=== PATIENT | female | born 1975 | race Caucasian/White ===

== ENCOUNTER → 2016-05-20 | Outpatient (CLI) | payer OTHER ==
[~2016-05-20] MED LIST: AUGM875T27 PO; NEUR600T PO; TRAM50TA2 PO; TYLE325T5 PO
--- NOTE | 2016-05-20 10:02 | REP ---
Clinical: Pain. Bursitis. Technique: AP, lateral, bilateral oblique views of the left elbow. Findings: No acute or healed fracture identified. Small calcifications adjacent to the olecranon process suggest degenerative changes and possible mild tendinopathy. No significant swelling or obvious effusion/bursitis appreciated by radiographic evaluation. Impression: Mild degenerative changes. No obvious effusion or bursitis noted. Signed by Michael Chino MD 05/20/2016 09:53 A
[2016-05-20 13:38] LABS: BASO % 0.7 % (0.0-1.0); EOS # 0.1 K/mm3 (0.0-0.50); EOS % 0.9 % (0.0-3.0); LARGE UNSTAINED CELL # 0.2 K/mm3 (0.0-0.4); LARGE UNSTAINED CELL % 1.8 % (0.0-4.0); LYMPH # 1.4 K/mm3 (1.5-4.5); LYMPH % 17.5 % (24.0-44.0); MEAN CORPUSCULAR HEMOGLOBIN 31.4 pg (27.0-33.0); MEAN CORPUSCULAR VOLUME 89.9 fl (80.0-96.0); MONO # 0.5 K/mm3 (0.0-0.8); MONO % 6.7 % (0.0-5.0); NEUTROPHILS # 5.7 K/mm3 (1.8-7.7); NEUTROPHILS % 72.3 % (36.0-66.0); PLATELET COUNT, AUTOMATED 323 k/mm3 (150-450); RED CELL DISTRIBUTION WIDTH 11.5 % (11.5-14.5); WHITE BLOOD COUNT 7.9 K/mm3 (4.0-10.0)
[2016-05-20 14:17] LABS: ERYTHROCYTE SEDIMENTATION RATE 20 mm/hr (0-20)
[2016-05-21 14:13] LABS: Lyme Disease IgG/IgM Antibodie <0.91 ISR (0.00-0.90); Lyme Disease IgM Ab Quantitati <0.80 index (0.00-0.79)
== END ==
LOC: M SMT 09:22
PROVIDERS: ATTEND Physician Assistant
DX: M70.22 Olecranon bursitis, left elbow (principal)

== ENCOUNTER → 2016-12-04 | Outpatient (CLI) | payer OTHER ==
[~2016-12-04] MED LIST changes: -AUGM875T27 PO; +AUGM875T28 PO
[2016-12-04 18:03] LABS: MEAN CORPUSCULAR VOLUME 91.1 fl (80.0-96.0); RED CELL DISTRIBUTION WIDTH 12.7 % (11.5-14.5); WHITE BLOOD COUNT 6.3 K/mm3 (4.0-10.0)
[2016-12-04 18:45] LABS: ALBUMIN 3.8 GM/DL (3.2-5.2); ALBUMIN/GLOBULIN RATIO 1.15 (1.00-1.93); ALKALINE PHOSPHATASE 132 U/L (45-117); ALT/SGPT 40 U/L (12-78); ANION GAP 9 MEQ/L (8-16); AST/SGOT 23 U/L (15-37); BILIRUBIN,TOTAL 0.4 MG/DL (0.2-1.0); BLOOD UREA NITROGEN 10 MG/DL (7-18); CALCIUM LEVEL 8.7 MG/DL (8.5-10.1); CARBON DIOXIDE LEVEL 27 MEQ/L (21-32); CHLORIDE LEVEL 103 MEQ/L (98-107); CREATININE FOR GFR 0.64 MG/DL (0.55-1.02); FREE T4 0.94 NG/DL (0.76-1.46); GLOMERULAR FILTRATION RATE > 60.0 (>58); GLUCOSE, FASTING 73 MG/DL (70-105); POTASSIUM SERUM 3.9 MEQ/L (3.5-5.1); SODIUM LEVEL 139 MEQ/L (136-145); TOTAL PROTEIN 7.1 GM/DL (6.4-8.2)
[2016-12-04 21:30] LABS: BANDS 1 % (< 11); BASOPHILS 1 % (0-4)
== END ==
LOC: M WUC 08:55
PROVIDERS: ATTEND Physician Assistant
DX: J02.9 Acute pharyngitis, unspecified (principal); R53.83 Other fatigue

== ENCOUNTER → 2017-02-15 | Outpatient (CLI) | payer OTHER ==
[2017-02-15 13:40] LABS: BASO % 0.8 % (0.0-1.0); EOS # 0.2 10^3/uL (0.0-0.50); EOS % 3.2 % (0.0-3.0); IMMATURE GRANULOCYTE % 0.2 % (0-0); LYMPH # 1.1 10^3/uL (1.5-4.5); LYMPH % 21.6 % (24.0-44.0); MEAN CORPUSCULAR HEMOGLOBIN 30.5 pg (27.0-33.0); MEAN CORPUSCULAR HGB CONC 33.5 g/dl (32.0-36.5); MONO # 0.5 10^3/uL (0.0-0.8); MONO % 10.5 % (0.0-5.0); NEUTROPHILS # 3.2 10^3/uL (1.8-7.7); NEUTROPHILS % 63.7 % (36.0-66.0); PLATELET COUNT, AUTOMATED 242 10^3/uL (150-450); RED CELL DISTRIBUTION WIDTH 12.1 % (11.5-14.5)
[2017-02-15 13:49] LABS: ALBUMIN 3.9 GM/DL (3.2-5.2); ALBUMIN/GLOBULIN RATIO 1.11 (1.00-1.93); ALKALINE PHOSPHATASE 101 U/L (45-117); ALT/SGPT 78 U/L (12-78); ANION GAP 5 MEQ/L (8-16); AST/SGOT 35 U/L (15-37); BILIRUBIN,TOTAL 0.6 MG/DL (0.2-1.0); BLOOD UREA NITROGEN 12 MG/DL (7-18); CALCIUM LEVEL 8.6 MG/DL (8.5-10.1); CARBON DIOXIDE LEVEL 28 MEQ/L (21-32); CHLORIDE LEVEL 106 MEQ/L (98-107); GLOMERULAR FILTRATION RATE > 60.0 (>58); GLUCOSE, FASTING 72 MG/DL (70-105); POTASSIUM SERUM 4.1 MEQ/L (3.5-5.1); SODIUM LEVEL 139 MEQ/L (136-145); TOTAL PROTEIN 7.4 GM/DL (6.4-8.2)
== END ==
LOC: M SMT 09:09
PROVIDERS: ATTEND Family Medicine
DX: B27.99 Infectious mononucleosis, unspecified with other complication (principal)

== ENCOUNTER → 2017-02-23 | Outpatient (CLI) | payer OTHER ==
--- NOTE | 2017-02-23 15:58 | REPMRS ---
Patient History The patient states she had a clinical breast exam in Patient is nulliparous. Family history of prostate cancer in father at age 65. Digital Woman Screen Mammo: February 23, 2017 - Exam #: [id number] Bilateral CC and MLO view(s) were taken. Technologist: Esthela Styles, Technologist Prior study comparison: November 25, 2015, digital woman screen mammo performed at [facility]. FINDINGS: There are scattered fibroglandular densities. There has been no change in the appearance of the mammogram from the prior studies. There is a mild amount of residual fibroglandular tissue which is fairly symmetric. There is no interval development of dominant mass, architectural distortion, or clustered microcalcification suggestive of malignancy. ASSESSMENT: BI-RADS/ACR category 1 mammogram. Negative. Recommendation Routine screening mammogram in 1 year (for women over age 40). This mammogram was interpreted with the aid of an FDA-approved computer-aided dectection system. Electronically Signed By: Donnie Mendes MD 02/23/17 [id number]
== END ==
LOC: M WHC 15:25
PROVIDERS: ATTEND Nurse Practitioner Women's Health
DX: Z12.31 Encounter for screening mammogram for malignant neoplasm of breast (principal)

== ENCOUNTER → 2017-07-26 | Outpatient (REF) | payer OTHER | LOC: M LAB REF 16:24 | DX: J02.9 Acute pharyngitis, unspecified (principal) ==

== ENCOUNTER → 2019-04-22 | Outpatient (CLI) | payer OTHER ==
[2019-04-22 13:31] LABS: BASO # 0.1 10^3/uL (0.0-0.2); BASO % 0.9 % (0.0-1.0); EOS # 0.1 10^3/uL (0.0-0.5); EOS % 1.4 % (0.0-3.0); HEMATOCRIT 43.3 % (36.0-47.0); HEMOGLOBIN 14.5 g/dl (12.0-15.5); LYMPH # 1.3 10^3/uL (1.5-5.0); LYMPH % 22.9 % (24.0-44.0); MEAN CORPUSCULAR HEMOGLOBIN 30.5 pg (27.0-33.0); MEAN CORPUSCULAR HGB CONC 33.5 g/dl (32.0-36.5); MEAN CORPUSCULAR VOLUME 91.2 fl (80.0-96.0); MONO # 0.5 10^3/uL (0.0-0.8); NEUTROPHILS # 3.8 10^3/uL (1.5-8.5); NEUTROPHILS % 66.6 % (36.0-66.0); PLATELET COUNT, AUTOMATED 227 10^3/uL (150-450); RED BLOOD COUNT 4.75 10^6/uL (4.00-5.40); WHITE BLOOD COUNT 5.7 10^3/uL (4.0-10.0)
[2019-04-22 14:04] LABS: ALBUMIN 3.9 GM/DL (3.2-5.2); ALT/SGPT 68 U/L (12-78); BILIRUBIN,TOTAL 0.4 MG/DL (0.2-1.0); BLOOD UREA NITROGEN 10 MG/DL (7-18); CALCIUM LEVEL 8.8 MG/DL (8.5-10.1); CARBON DIOXIDE LEVEL 27 MEQ/L (21-32); CHLORIDE LEVEL 108 MEQ/L (98-107); CHOLESTEROL LEVEL 222 MG/DL (<200); CHOLESTEROL RISK RATIO 2.551 (<5); CREATININE FOR GFR 0.65 MG/DL (0.55-1.30); FREE T4 1.05 NG/DL (0.76-1.46); GLOMERULAR FILTRATION RATE > 60.0 (>58); GLUCOSE, FASTING 81 MG/DL (70-100); HDL CHOLESTEROL 87 MG/DL (>40); LDL CHOLESTEROL 122 MG/DL (<100); NON-HDL-C 135 MG/DL; POTASSIUM SERUM 3.9 MEQ/L (3.5-5.1); SODIUM LEVEL 142 MEQ/L (136-145); TOTAL PROTEIN 7.2 GM/DL (6.4-8.2); TRIGLYCERIDES LEVEL 64 MG/DL (<150)
== END ==
LOC: M PLALAB 09:08
PROVIDERS: ATTEND Family Medicine
DX: Z13.29 Encounter for screening for other suspected endocrine disorder (principal); Z13.220 Encounter for screening for lipoid disorders

== ENCOUNTER → 2019-05-20 | Outpatient (CLI) | payer OTHER ==
--- NOTE | 2019-05-20 12:52 | REPMRS ---
Patient History The patient states she had a clinical breast exam in 2018. Family history of prostate cancer at age 65 in father. Digital Woman Screen Mammo: May 20, 2019 - Exam #: [id number] Bilateral CC and MLO view(s) were taken. Technologist: Esther Campbell, Technologist Prior study comparison: February 23, 2017, digital woman screen mammo performed at [facility]. November 25, 2015, digital woman screen mammo performed at [facility]. FINDINGS: There are scattered fibroglandular densities. There has been no change in the appearance of the mammogram from the prior studies. There is a mild amount of scattered fibroglandular density which is fairly symmetric. There is no interval development of dominant mass, architectural distortion, or grouped microcalcification suggestive of malignancy. 3-D tomosynthesis shows no additional findings. Assessment: BI-RADS/ACR category 1 mammogram. Negative Mammogram. Recommendation Routine screening mammogram of both breasts in 1 year (for women over age 40). This patient's Lifetime Breast Cancer Risk is estimated at 14.0 %. This mammogram was interpreted with the aid of an FDA-approved computer-aided dectection system. Electronically Signed By: Hugo Cooper MD 05/20/19 [id number]
== END ==
LOC: M WHC 10:33
PROVIDERS: ATTEND Family Medicine
DX: Z12.31 Encounter for screening mammogram for malignant neoplasm of breast (principal)

== ENCOUNTER → 2020-04-23 | Outpatient (CLI) | payer OTHER ==
[2020-04-23 11:34] LABS: BASO % 0.8 % (0.0-1.0); EOS # 0.1 10^3/uL (0.0-0.5); EOS % 1.8 % (0.0-3.0); HEMATOCRIT 43.7 % (36.0-47.0); HEMOGLOBIN 14.4 g/dl (12.0-15.5); LYMPH # 1.2 10^3/uL (1.5-5.0); LYMPH % 24.6 % (24.0-44.0); MEAN CORPUSCULAR HEMOGLOBIN 30.2 pg (27.0-33.0); MEAN CORPUSCULAR VOLUME 91.6 fl (80.0-96.0); MONO # 0.7 10^3/uL (0.0-0.8); MONO % 13.3 % (0.0-5.0); NEUTROPHILS # 2.9 10^3/uL (1.5-8.5); NEUTROPHILS % 59.3 % (36.0-66.0); PLATELET COUNT, AUTOMATED 261 10^3/uL (150-450); RED BLOOD COUNT 4.77 10^6/uL (4.00-5.40); WHITE BLOOD COUNT 4.9 10^3/uL (4.0-10.0)
[2020-04-23 14:07] LABS: ALBUMIN 3.8 GM/DL (3.2-5.2); ALT/SGPT 50 U/L (12-78); BILIRUBIN,TOTAL 0.4 MG/DL (0.2-1.0); BLOOD UREA NITROGEN 12 MG/DL (7-18); CALCIUM LEVEL 8.8 MG/DL (8.5-10.1); CARBON DIOXIDE LEVEL 28 MEQ/L (21-32); CHLORIDE LEVEL 106 MEQ/L (98-107); CHOLESTEROL LEVEL 184 MG/DL (<200); CREATININE FOR GFR 0.61 MG/DL (0.55-1.30); FREE T4 1.59 NG/DL (0.76-1.46); GLOMERULAR FILTRATION RATE > 60.0 (>58); GLUCOSE, FASTING 78 MG/DL (70-100); HDL CHOLESTEROL 65 MG/DL (>40); LDL CHOLESTEROL 107 MG/DL (<100); NON-HDL-C 119 MG/DL; POTASSIUM SERUM 4.4 MEQ/L (3.5-5.1); SODIUM LEVEL 141 MEQ/L (136-145); THYROID STIMULATING HORMONE 0.015 uIU/ML (0.358-3.740); TOTAL PROTEIN 6.9 GM/DL (6.4-8.2); TRIGLYCERIDES LEVEL 61 MG/DL (<150)
[2020-04-23 19:33] LABS: THYROID PEROXIDASE ANTIBODY 39.2 U/ML (<60.0)
[2020-04-23 19:34] LABS: THYROGLOBULIN ANTIBODY 49.4 U/ML (<60.0)
== END ==
LOC: M WUC 08:05
PROVIDERS: ATTEND Family Medicine
DX: Z13.29 Encounter for screening for other suspected endocrine disorder (principal); Z13.0 Encounter for screening for diseases of the blood and blood-forming organs and certain disorders involving the immune mechanism; Z13.220 Encounter for screening for lipoid disorders

== ENCOUNTER → 2020-05-20 | Outpatient (CLI) | payer OTHER ==
[2020-05-20 12:19] LABS: THYROGLOBULIN ANTIBODY 56.8 U/ML (<60.0); THYROID PEROXIDASE ANTIBODY < 28.0 U/ML (<60.0)
== END ==
LOC: M WUC 09:03
PROVIDERS: ATTEND Family Medicine
DX: E05.90 Thyrotoxicosis, unspecified without thyrotoxic crisis or storm (principal)

== ENCOUNTER → 2020-07-10 | Outpatient (CLI) | payer OTHER ==
--- NOTE | 2020-07-10 14:20 | REPVR ---
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 3D rendering (Not supervised by radiologist): MIP and/or 3D reconstructed images were created by the technologist. COMPARISON: MR BRAIN WITH CONTRAST [id number] 05/06/2020 11:12 PM FINDINGS: Brain: Stable appearance of well-defined rounded CSF signal intensity cyst along the left lateral aspect of the 3rd ventricle measuring approximately 1.5 x 1.3 x 1.1 cm in dimensions. There is mass effect with compression and mild displacement of the 3rd ventricle towards the right. 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 Remainder of the brain parenchyma is unremarkable. No acute infarction or acute hemorrhage is seen.There is no abnormal diffusion weighted signal intensity to suggest an acute ischemic event. Examination of the posterior fossa demonstrates no significant abnormality. Cerebral ventricles: There is a new right frontal [employer] shunt with its tip adjacent to the body of the right lateral ventricle , best appreciated on coronal series 1005 image 53. It is not clear if the tip extends into the lateral ventricle and CT scan of the brain may be considered to evaluate the location of the tip of the [employer] shunt. The degree of hydrocephalus is overall unchanged since the previous study. Bones/joints: Unremarkable. Paranasal sinuses: Normal as visualized. No acute sinusitis. Mastoid air cells: Normal as visualized. No mastoid effusion. Orbital cavity: Unremarkable. Soft tissues: Unremarkable. IMPRESSION: 1. Stable appearance of well-defined rounded CSF signal intensity cyst along the left lateral aspect of the 3rd ventricle measuring approximately 1.5 x 1.3 x 1.1 cm in dimensions. There is mass effect with compression and mild displacement of the 3rd ventricle towards the right. 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 2. There is a new right frontal [employer] shunt with its tip adjacent to the body of the right lateral ventricle , best appreciated on coronal series 1005 image 53. It is not clear if the tip extends into the lateral ventricle and CT scan of the brain may be considered to evaluate the location of the tip of the [employer] shunt. The degree of hydrocephalus is overall unchanged since the previous study. Electronically signed by: Mac Pratt On 07/10/2020 14:20:57 PM
== END ==
LOC: M RAD 09:25
DX: G91.9 Hydrocephalus, unspecified (principal)

== ENCOUNTER → 2020-08-19 | Outpatient (CLI) | payer OTHER ==
--- NOTE | 2020-08-19 15:56 | REPMRS ---
Patient History The patient states she had a clinical breast exam in June 2020. Family history of prostate cancer at age 65 in father. Digital Woman Screen Mammo: August 19, 2020 - Exam #: [id number] Bilateral CC and MLO view(s) were taken. Technologist: RT Luís Prior study comparison: May 20, 2019, bilateral digital woman screen mammo performed at [facility]. February 23, 2017, digital woman screen mammo performed at [facility]. November 25, 2015, digital woman screen mammo performed at [facility]. FINDINGS: There are scattered fibroglandular densities. The Volpara volumetric breast density category is: B. There is a moderate amount of residual fibroglandular tissue which is fairly symmetric. There is no interval development of dominant mass, architectural distortion, or grouped microcalcification typical of malignancy. There has been no change in the appearance of the mammogram from the prior studies. 3-D tomosynthesis shows no additional findings. Assessment: BI-RADS/ACR category 1 mammogram. Negative Mammogram. Recommendation Routine screening mammogram of both breasts in 1 year (for women over age 40). This patient's [facility] Lifetime Breast Cancer RIsk is estimated at 13.8 %. This mammogram was interpreted with the aid of an FDA-approved computer-aided dectection system. Electronically Signed By: Hugo Cooper MD 08/19/20 [id number]
== END ==
LOC: M WHC 14:52
PROVIDERS: ATTEND Advanced Practice Midwife
DX: Z12.31 Encounter for screening mammogram for malignant neoplasm of breast (principal); Z80.42 Family history of malignant neoplasm of prostate

== ENCOUNTER → 2021-04-29 | Outpatient (CLI) | payer OTHER ==
[2021-04-29 10:20] LABS: BASO % 0.9 % (0.0-1.0); EOS # 0.1 10^3/uL (0.0-0.5); HEMATOCRIT 45.4 % (36.0-47.0); HEMOGLOBIN 15.3 g/dl (12.0-15.5); LYMPH # 1.5 10^3/uL (1.5-5.0); LYMPH % 33.2 % (24.0-44.0); MEAN CORPUSCULAR HEMOGLOBIN 30.1 pg (27.0-33.0); MEAN CORPUSCULAR HGB CONC 33.7 g/dl (32.0-36.5); MEAN CORPUSCULAR VOLUME 89.2 fl (80.0-96.0); MONO # 0.5 10^3/uL (0.0-0.8); MONO % 11.4 % (2.0-8.0); NEUTROPHILS # 2.4 10^3/uL (1.5-8.5); NEUTROPHILS % 52.3 % (36.0-66.0); PLATELET COUNT, AUTOMATED 244 10^3/uL (150-450); RED BLOOD COUNT 5.09 10^6/uL (4.00-5.40); WHITE BLOOD COUNT 4.6 10^3/uL (4.0-10.0)
[2021-04-29 10:57] LABS: ALBUMIN 3.9 GM/DL (3.2-5.2); ALT/SGPT 61 U/L (12-78); BILIRUBIN,TOTAL 0.7 MG/DL (0.2-1.0); BLOOD UREA NITROGEN 14 MG/DL (7-18); CALCIUM LEVEL 9.2 MG/DL (8.5-10.1); CARBON DIOXIDE LEVEL 29 MEQ/L (21-32); CHLORIDE LEVEL 107 MEQ/L (98-107); CHOLESTEROL LEVEL 201 MG/DL (<200); CHOLESTEROL RISK RATIO 2.421 (<5); CREATININE FOR GFR 0.63 MG/DL (0.55-1.30); FREE T4 1.23 NG/DL (0.76-1.46); GLOMERULAR FILTRATION RATE > 60.0 (>58); GLUCOSE, FASTING 84 MG/DL (70-100); HDL CHOLESTEROL 83 MG/DL (>40); LDL CHOLESTEROL 108 MG/DL (<100); NON-HDL-C 118 MG/DL; SODIUM LEVEL 140 MEQ/L (136-145); THYROID STIMULATING HORMONE < 0.005 uIU/ML (0.358-3.740); TOTAL PROTEIN 7.2 GM/DL (6.4-8.2); TRIGLYCERIDES LEVEL 49 MG/DL (<150)
[2021-04-29 17:46] LABS: PROLACTIN 8.6 NG/ML; THYROID PEROXIDASE ANTIBODY < 28.0 U/ML (<60.0)
[2021-04-29 17:47] LABS: THYROGLOBULIN ANTIBODY 28.9 U/ML (<60.0)
== END ==
LOC: M WUC 08:06
PROVIDERS: ATTEND Family Medicine
DX: I10 Essential (primary) hypertension (principal); D44.5 Neoplasm of uncertain behavior of pineal gland; R94.6 Abnormal results of thyroid function studies; G91.8 Other hydrocephalus

== ENCOUNTER → 2021-05-14 | Outpatient (CLI) | payer OTHER ==
[2021-05-14 12:57] LABS: FREE T4 1.41 NG/DL (0.76-1.46); THYROGLOBULIN ANTIBODY 27.7 U/ML (<60.0); THYROID PEROXIDASE ANTIBODY < 28.0 U/ML (<60.0); THYROID STIMULATING HORMONE < 0.005 uIU/ML (0.358-3.740)
== END ==
LOC: M WUC 09:44
PROVIDERS: ATTEND Family Medicine
DX: R94.6 Abnormal results of thyroid function studies (principal)

== ENCOUNTER → 2021-06-09 | Outpatient (CLI) | payer OTHER ==
[2021-06-09 10:52] LABS: CORTISOL AM 8.6 UG/DL (4.3-22.4); FREE T4 1.07 NG/DL (0.76-1.46); TOTAL T3 146.4 NG/DL (60.0-181.0)
[2021-06-09 10:53] LABS: THYROID STIMULATING HORMONE < 0.005 uIU/ML (0.358-3.740)
== END ==
LOC: M WUC 08:10
PROVIDERS: ATTEND Nurse Practitioner Family
DX: R94.6 Abnormal results of thyroid function studies (principal); R42 Dizziness and giddiness

== ENCOUNTER → 2021-06-29 | Outpatient (CLI) | payer OTHER | LOC: M RAD 11:54 | PROVIDERS: ATTEND Internal Medicine Endocrinology, Diabetes & Metabolism | DX: R94.6 Abnormal results of thyroid function studies (principal) | CPT/HCPCS: 78012; A9516 ==

== ENCOUNTER → 2021-09-03 | Outpatient (CLI) | payer OTHER | LOC: M WHC 07:56 | PROVIDERS: ATTEND Obstetrics & Gynecology | DX: R92.8 Other abnormal and inconclusive findings on diagnostic imaging of breast (principal); N60.02 Solitary cyst of left breast | CPT/HCPCS: 76642; 77065; G0279 ==

== ENCOUNTER → 2022-05-19 | Outpatient (CLI) | payer OTHER ==
[2022-05-19 09:58] LABS: BASO # 0.1 10^3/uL (0.0-0.2); BASO % 1.1 % (0.0-1.0); EOS # 0.2 10^3/uL (0.0-0.5); EOS % 3.2 % (0.0-3.0); HEMATOCRIT 43.8 % (36.0-47.0); HEMOGLOBIN 14.6 g/dl (12.0-15.5); LYMPH # 1.5 10^3/uL (1.5-5.0); LYMPH % 27.8 % (24.0-44.0); MEAN CORPUSCULAR HEMOGLOBIN 30.3 pg (27.0-33.0); MEAN CORPUSCULAR HGB CONC 33.3 g/dl (32.0-36.5); MEAN CORPUSCULAR VOLUME 90.9 fl (80.0-96.0); MONO # 0.5 10^3/uL (0.0-0.8); NEUTROPHILS # 3.1 10^3/uL (1.5-8.5); NEUTROPHILS % 57.7 % (36.0-66.0); PLATELET COUNT, AUTOMATED 239 10^3/uL (150-450); RED BLOOD COUNT 4.82 10^6/uL (4.00-5.40); WHITE BLOOD COUNT 5.3 10^3/uL (4.0-10.0)
[2022-05-19 10:24] LABS: ALKALINE PHOSPHATASE 75 U/L (46-116); ALT/SGPT 30 U/L (7.0-40); AST/SGOT 25 U/L (<34); BILIRUBIN,TOTAL 0.6 MG/DL (0.3-1.2); BLOOD UREA NITROGEN 10 MG/DL (9-23); CALCIUM LEVEL 9.1 MG/DL (8.5-10.1); CARBON DIOXIDE LEVEL 28 MMOL/L (20-31); CHLORIDE LEVEL 105 MMOL/L (98-107); CHOLESTEROL LEVEL 198 MG/DL (<200); CHOLESTEROL RISK RATIO 2.52 (<5); CREATININE FOR GFR 0.71 MG/DL (0.55-1.30); GLOMERULAR FILTRATION RATE > 60.0 (>58); GLUCOSE, FASTING 73 MG/DL (60-100); HDL CHOLESTEROL 78.3 MG/DL (>40); LDL CHOLESTEROL 107.7 MG/DL (<100); NON-HDL-C 120 MG/DL; POTASSIUM SERUM 4.1 MMOL/L (3.5-5.1); SODIUM LEVEL 139 MMOL/L (136-145); TOTAL PROTEIN 6.9 G/DL (5.7-8.2); TRIGLYCERIDES LEVEL 60 MG/DL (<150)
[2022-05-19 10:33] LABS: THYROID STIMULATING HORMONE 1.465 uIU/ML (0.55-4.78)
[2022-05-19 10:34] LABS: FREE T4 1.08 NG/DL (0.89-1.76)
[2022-05-19 10:45] LABS: HEMOGLOBIN A1c 4.7 % (4.0-6.0)
[2022-05-19 14:41] LABS: TOTAL 25(OH) VITAMIN D 46.3 NG/ML (20.0-100.0)
== END ==
LOC: M WUC 08:09
PROVIDERS: ATTEND Nurse Practitioner Adult Health
DX: I10 Essential (primary) hypertension (principal); R94.6 Abnormal results of thyroid function studies; Z13.220 Encounter for screening for lipoid disorders; Z13.29 Encounter for screening for other suspected endocrine disorder; D44.5 Neoplasm of uncertain behavior of pineal gland

== ENCOUNTER 2022-07-05 10:00 | Emergency (ER) | payer OTHER ==
[~2022-07-05] VITALS: Ht 157.5 cm; Wt 69.7 kg
[2022-07-05 13:25] LABS: BASO # 0.1 10^3/uL (0.0-0.2); BASO % 0.7 % (0.0-1.0); EOS % 0.4 % (0.0-3.0); HEMATOCRIT 44.2 % (36.0-47.0); HEMOGLOBIN 15.4 g/dl (12.0-15.5); LYMPH # 1.3 10^3/uL (1.5-5.0); LYMPH % 17.9 % (24.0-44.0); MEAN CORPUSCULAR HEMOGLOBIN 30.7 pg (27.0-33.0); MEAN CORPUSCULAR HGB CONC 34.8 g/dl (32.0-36.5); MEAN CORPUSCULAR VOLUME 88.2 fl (80.0-96.0); MONO # 0.3 10^3/uL (0.0-0.8); MONO % 4.9 % (2.0-8.0); NEUTROPHILS # 5.3 10^3/uL (1.5-8.5); NEUTROPHILS % 75.5 % (36.0-66.0); PLATELET COUNT, AUTOMATED 248 10^3/uL (150-450); RED BLOOD COUNT 5.01 10^6/uL (4.00-5.40)
[2022-07-05 13:52] LABS: BLOOD UREA NITROGEN 12 MG/DL (9-23); CALCIUM LEVEL 9.9 MG/DL (8.5-10.1); CARBON DIOXIDE LEVEL 27 MMOL/L (20-31); CHLORIDE LEVEL 105 MMOL/L (98-107); CREATININE FOR GFR 0.61 MG/DL (0.55-1.30); GLOMERULAR FILTRATION RATE > 60.0 (>58); GLUCOSE, FASTING 78 MG/DL (60-100); MAGNESIUM LEVEL 2.1 MG/DL (1.8-2.4); SODIUM LEVEL 141 MMOL/L (136-145)
[2022-07-05 13:54] LABS: FREE T4 1.11 NG/DL (0.89-1.76); THYROID STIMULATING HORMONE 1.263 uIU/ML (0.55-4.78)
[2022-07-05 14:55] VITALS: BP 150/94
== END 2022-07-05 15:06 | disposition home or self-care (01) ==
LOC: M ED 10:00
DX: R55 Syncope and collapse (principal); I10 Essential (primary) hypertension; Z88.2 Allergy status to sulfonamides; Z91.041 Radiographic dye allergy status; Z91.018 Allergy to other foods; Z79.891 Long term (current) use of opiate analgesic; Z79.899 Other long term (current) drug therapy

== ENCOUNTER → 2022-09-08 | Outpatient (CLI) | payer OTHER | LOC: M WHC 08:06 | PROVIDERS: ATTEND Obstetrics & Gynecology | DX: Z12.31 Encounter for screening mammogram for malignant neoplasm of breast (principal); N63.10 Unspecified lump in the right breast, unspecified quadrant; N63.20 Unspecified lump in the left breast, unspecified quadrant ==

== ENCOUNTER → 2023-06-26 | Outpatient (CLI) | payer OTHER ==
[2023-06-26 11:46] LABS: BASO % 0.7 % (0.0-1.0); EOS # 0.1 10^3/uL (0.0-0.5); HEMATOCRIT 42.7 % (36.0-47.0); HEMOGLOBIN 14.6 g/dl (12.0-15.5); LYMPH # 1.5 10^3/uL (1.5-5.0); LYMPH % 27.3 % (24.0-44.0); MEAN CORPUSCULAR HEMOGLOBIN 30.6 pg (27.0-33.0); MEAN CORPUSCULAR HGB CONC 34.2 g/dl (32.0-36.5); MEAN CORPUSCULAR VOLUME 89.5 fl (80.0-96.0); MONO # 0.4 10^3/uL (0.0-0.8); MONO % 7.8 % (2.0-8.0); NEUTROPHILS # 3.4 10^3/uL (1.5-8.5); PLATELET COUNT, AUTOMATED 252 10^3/uL (150-450); RED BLOOD COUNT 4.77 10^6/uL (4.00-5.40); WHITE BLOOD COUNT 5.5 10^3/uL (4.0-10.0)
[2023-06-26 12:14] LABS: ALBUMIN 3.8 G/DL (3.2-5.2); ALKALINE PHOSPHATASE 80 U/L (46-116); ALT/SGPT 37 U/L (7.0-40); AST/SGOT 21 U/L (<34); BILIRUBIN,TOTAL 0.5 MG/DL (0.3-1.2); BLOOD UREA NITROGEN 19 MG/DL (9-23); CALCIUM LEVEL 9.2 MG/DL (8.5-10.1); CARBON DIOXIDE LEVEL 31 MMOL/L (20-31); CHLORIDE LEVEL 107 MMOL/L (98-107); CHOLESTEROL LEVEL 213 MG/DL (<200); CHOLESTEROL RISK RATIO 2.66 (<5); CREATININE FOR GFR 0.76 MG/DL (0.55-1.30); FREE T4 1.04 NG/DL (0.89-1.76); GLOMERULAR FILTRATION RATE > 60.0 (>58); GLUCOSE, FASTING 83 MG/DL (60-100); LDL CHOLESTEROL 122.6 MG/DL (<100); POTASSIUM SERUM 4.4 MMOL/L (3.5-5.1); SODIUM LEVEL 142 MMOL/L (136-145); THYROID STIMULATING HORMONE 1.151 uIU/ML (0.55-4.78); TOTAL PROTEIN 6.7 G/DL (5.7-8.2); TRIGLYCERIDES LEVEL 52 MG/DL (<150)
== END ==
LOC: M WUC 09:38
PROVIDERS: ATTEND Nurse Practitioner Adult Health
DX: Z13.220 Encounter for screening for lipoid disorders (principal); Z13.228 Encounter for screening for other metabolic disorders; R94.6 Abnormal results of thyroid function studies

== ENCOUNTER → 2023-09-22 | Outpatient (CLI) | payer OTHER | LOC: M WHC 11:13 | PROVIDERS: ATTEND Obstetrics & Gynecology | DX: Z12.31 Encounter for screening mammogram for malignant neoplasm of breast (principal) ==

== ENCOUNTER → 2023-10-10 | Outpatient (CLI) | payer OTHER | LOC: M WHC 12:32 | PROVIDERS: ATTEND Obstetrics & Gynecology | DX: R92.8 Other abnormal and inconclusive findings on diagnostic imaging of breast (principal); R92.322 Mammographic fibroglandular density, left breast; N60.12 Diffuse cystic mastopathy of left breast | CPT/HCPCS: 76642; 77065; G0279 ==

== ENCOUNTER 2023-12-21 07:42 | Day surgery (SDC) | payer OTHER ==
[~2023-12-21] VITALS: Ht 157.5 cm; Wt 67.9 kg
[~2023-12-21 07:42] MED LIST changes: +CALC500T52 PO; +CALCTAB15 PO; +D-3-50003 PO; +LOSA50TA28 PO; +PROBCAP14 PO; +THERTAB52 PO; +[UNRECOGNIZED DRUG - OTHER] PO
[2023-12-21] MEDS: NS 1,000 ML IV ONE (08:49)
[2023-12-21] MEDS ORDERED: LIDOCAINE 2% 100MG/5ML SDV (FOR ANES.) As Ordered ONE (09:56)
[2023-12-21] MEDS ORDERED: propofoL 500 MG/50 ML VIAL As Ordered ONE (09:56)
[2023-12-21 10:09] VITALS: TEMP 97
[2023-12-21 10:24] VITALS: BP 138/86; O2SAT 98
== END 2023-12-21 10:30 | disposition home or self-care (01) ==
LOC: M OPP 07:42
PROVIDERS: ATTEND Internal Medicine Gastroenterology
DX: Z12.11 Encounter for screening for malignant neoplasm of colon (principal); D12.3 Benign neoplasm of transverse colon; D12.7 Benign neoplasm of rectosigmoid junction; K64.8 Other hemorrhoids; Z91.018 Allergy to other foods; Z91.041 Radiographic dye allergy status; Z88.2 Allergy status to sulfonamides; Z79.899 Other long term (current) drug therapy

== ENCOUNTER → 2024-06-27 | Outpatient (CLI) | payer OTHER ==
[2024-06-27 14:06] LABS: BASO # 0.1 10^3/uL (0.0-0.2); BASO % 1.1 % (0.0-1.0); EOS # 0.2 10^3/uL (0.0-0.5); HEMATOCRIT 43.7 % (36.0-47.0); HEMOGLOBIN 14.8 g/dl (12.0-15.5); LYMPH # 1.4 10^3/uL (1.5-5.0); LYMPH % 24.6 % (24.0-44.0); MEAN CORPUSCULAR HEMOGLOBIN 30.7 pg (27.0-33.0); MEAN CORPUSCULAR HGB CONC 33.9 g/dl (32.0-36.5); MEAN CORPUSCULAR VOLUME 90.7 fl (80.0-96.0); MONO # 0.5 10^3/uL (0.0-0.8); MONO % 9.6 % (2.0-8.0); NEUTROPHILS # 3.5 10^3/uL (1.5-8.5); NEUTROPHILS % 61.3 % (36.0-66.0); PLATELET COUNT, AUTOMATED 255 10^3/uL (150-450); RED BLOOD COUNT 4.82 10^6/uL (4.00-5.40); WHITE BLOOD COUNT 5.6 10^3/uL (4.0-10.0)
[2024-06-27 14:08] LABS: ALKALINE PHOSPHATASE 108 U/L (35-104); ALT/SGPT 87 U/L (7.0-40); AST/SGOT 47 U/L (<34); BILIRUBIN,TOTAL 0.6 MG/DL (0.3-1.2); BLOOD UREA NITROGEN 16 MG/DL (9-23); CALCIUM LEVEL 9.2 MG/DL (8.5-10.1); CARBON DIOXIDE LEVEL 28 MMOL/L (20-31); CHLORIDE LEVEL 105 MMOL/L (98-107); CHOLESTEROL LEVEL 232 MG/DL (<200); CREATININE FOR GFR 0.71 MG/DL (0.55-1.30); FREE T4 1.25 NG/DL (0.89-1.76); GLOMERULAR FILTRATION RATE > 60.0 (>58); GLUCOSE, FASTING 79 MG/DL (60-100); HDL CHOLESTEROL 92.8 MG/DL (>40); NON-HDL-C 139.2 MG/DL; POTASSIUM SERUM 4.5 MMOL/L (3.5-5.1); SODIUM LEVEL 142 MMOL/L (136-145); THYROID STIMULATING HORMONE 2.213 uIU/ML (0.55-4.78); TOTAL PROTEIN 7.3 G/DL (5.7-8.2); TRIGLYCERIDES LEVEL 56 MG/DL (<150)
== END ==
LOC: M PLALAB 09:42
PROVIDERS: ATTEND Nurse Practitioner Adult Health
DX: I10 Essential (primary) hypertension (principal); R94.6 Abnormal results of thyroid function studies